=== PATIENT | male | born 1980 | race Hispanic/Latino ===

== ENCOUNTER 2020-12-09 14:55 | Outpatient (RCR) | payer BC ==
[2020-12-13] MEDS ORDERED: MINERAL OIL/PETROLAT/GLYCERI 6OZ BTL ONE (16:17)
== END 2021-01-05 ==
LOC: WCC 14:55
PROVIDERS: ATTEND Family Medicine Adult Medicine
DX: R69 Illness, unspecified (principal)

== ENCOUNTER 2023-03-23 00:23 | Emergency (ER) | payer BC, MEDICARE ==
[~2023-03-23] VITALS: Ht 172.7 cm; Wt 99.8 kg
[2023-03-23 00:41] LABS: BASOPHILS # (AUTO) 0.1 (0.0-0.1); BASOPHILS % 0.7 % (0.0-1.0); EOSINOPHILS # (AUTO) 0.1 (0.0-0.4); EOSINOPHILS % 1.3 % (0.0-6.0); HEMATOCRIT 46.1 % (38.2-49.6); LYMPHOCYTES # (AUTO) 4.2 (1.0-3.2); LYMPHOCYTES % 42.8 % (18.0-39.1); MEAN CORPUSCULAR HEMOGLOBIN 29.3 pg (28-32); MEAN CORPUSCULAR HGB CONC 34.7 g/dL (31-35); MEAN CORPUSCULAR VOLUME 84.3 fL (81-99); MONOCYTES # (AUTO) 0.9 (0.2-0.8); MONOCYTES % 9.5 % (4.4-11.3); NEUTROPHILS # (AUTO) 4.4 (2.1-6.9); NEUTROPHILS % 45.3 % (38.7-80.0); PLATELET COUNT 239 x10e3/uL (140-360); RED BLOOD COUNT 5.47 x10e6/uL (4.3-5.7); RED CELL DISTRIBUTION WIDTH 12.7 % (11.7-14.4)
[2023-03-23 00:59] LABS: AMPHETAMINES SCREEN,URINE NEGATIVE (NEGATIVE); BENZODIAZEPINES SCREEN,URINE NEGATIVE (NEGATIVE); PHENCYCLIDINE SCREEN,URINE NEGATIVE (NEGATIVE)
[2023-03-23 01:02] LABS: ALANINE AMINOTRANSFERASE 22 IU/L (0-55); ALBUMIN 3.7 g/dL (3.5-5.0); ALBUMIN/GLOBULIN RATIO 0.9 (0.8-2.0); ALKALINE PHOSPHATASE 86 IU/L (40-150); ANION GAP 14.7 mmol/L (8-16); BLOOD UREA NITROGEN 20 mg/dL (7-26); BUN/CREATININE RATIO 17 (6-25); CALCIUM 9.4 mg/dL (8.4-10.2); CARBON DIOXIDE 22 mmol/L (22-29); CHLORIDE 98 mmol/L (98-107); CREATINE KINASE 101 IU/L (30-200); POTASSIUM 3.7 mmol/L (3.5-5.1); SODIUM 131 mmol/L (136-145)
[2023-03-23 01:03] LABS: GLUCOSE 511 mg/dL (74-118)
[2023-03-23] MEDS ORDERED: SODIUM CHLORIDE 0.9% 1000ML 1,000 ML IV STA (01:17)
[2023-03-23] MEDS ORDERED: INSULIN REGULAR, HUMAN 100 UNIT/1 ML IV STA (01:23)
[2023-03-23 01:35] LABS: ABG HCO3 24 mmol/L (22-26); ABG PCO2 33 mmHg (35-45); ABG PH 7.46 (7.35-7.45); ABG PO2 109 mmHg (80-105); ABG TCO2 25
[2023-03-23 03:56] LABS: ALANINE AMINOTRANSFERASE 16 IU/L (0-55); ALBUMIN 2.7 g/dL (3.5-5.0); ALKALINE PHOSPHATASE 57 IU/L (40-150); ANION GAP 10.5 mmol/L (8-16); BLOOD UREA NITROGEN 17 mg/dL (7-26); BUN/CREATININE RATIO 25 (6-25); CARBON DIOXIDE 19 mmol/L (22-29); CHLORIDE 113 mmol/L (98-107); CREATINE KINASE 68 IU/L (30-200); CREATININE, SERUM 0.68 mg/dL (0.72-1.25); GLUCOSE 211 mg/dL (74-118); SODIUM 140 mmol/L (136-145)
[2023-03-23 03:58] LABS: CALCIUM 6.9 mg/dL (8.4-10.2); POTASSIUM 2.5 mmol/L (3.5-5.1)
[2023-03-23] MEDS ORDERED: POTASSIUM CHLORIDE 20 MEQ TAB CR PO STA (03:58)
[2023-03-23 04:45] VITALS: BP 123/93; PULSE 97; RESP 16; TEMP 98.4; O2SAT 97
== END 2023-03-23 04:23 | disposition home or self-care (01) ==
LOC: ER 00:35
DX: R07.9 Chest pain, unspecified (principal)
CPT/HCPCS: 36415; 36600; 71045; 80053; 80307; 82550; 82553; 82805; 83690; 83880; 84484; 85025; 93005; 99284; J7030